=== PATIENT | male | born 1995 | race Asian ===

== ENCOUNTER 2017-06-12 18:13 | Emergency (ER) | payer OTHER ==
[2017-06-12] MEDS ORDERED: IBUPROFEN 200 MG TAB PO ONE (18:38)
--- NOTE | 2017-06-12 18:51 | EDPHY ---
H & P Stated Complaint: flu-like sxs since Monday Time Seen by Provider: 06/12/17 18:30 HPI/ROS: CHIEF COMPLAINT: "I think I have the flu " HISTORY OF PRESENT ILLNESS: 22-year-old male, newly diagnosed HIV positive, not currently on antiviral medication, complaining of 4 days of flu-like symptoms, fever, chills, sore throat, myalgias. No cough. No dyspnea. No diarrhea. No abdominal pain. No nuchal rigidity. No otalgia. No rash. No back pain. No muscular flaccidity or paralysis. PRIMARY CARE PROVIDER: [facility] REVIEW OF SYSTEMS: A ten point review of systems was performed and is negative with the exception of the items mentioned in the HPI PAST MEDICAL & SURGICAL HISTORY: Newly diagnosed HIV positive, not currently on antiviral therapy. SOCIAL HISTORY: Nonsmoker PHYSICAL EXAM (Prior to examination, patient consented to physical exam, hands were washed and my usual and customary physical exam procedures followed) 1) GENERAL: Well-developed, well-nourished, alert and oriented. Appears to be in no acute distress. 2) HEAD: Normocephalic, atraumatic 3) HEENT: Pupils equal, round, reactive to light bilaterally. Sclera anicteric. Nasopharynx, oropharynx, clear, no lesions. No tonsillar enlargement or exudate. Ears bilaterally with normal tympanic membranes. 4) NECK: Full range of motion, no meningeal signs. 5) LUNGS: Clear auscultation bilaterally, no wheezes, no rhonchi, no retractions. 6) HEART: Regular rate and rhythm, no murmur, no heave, no gallop. 7) ABDOMEN: No guarding, no rebound, no focal tenderness, negative McBurney's, negative Burton's, negative Rovsing's, negative peritoneal sign, 8) MUSCULOSKELETAL: Moving all extremities, no focal areas of tenderness, no obvious trauma. No peripheral edema or discoloration. 9) BACK: No CVA tenderness, no midline vertebral tenderness, no fluctuance, no step-off, no obvious trauma, no visual or palpable abnormality. 10) SKIN: No rash, no petechiae. 11) Psychiatric: Patient is oriented X 3, there is no agitation. 12) NEURO: Awake, alert, and oriented to person, place and time. Answers questions appropriately. There were no obvious focal neurologic abnormalities. No cerebellar dysfunction. Normal steady gait. Upper and lower extremities bilaterally with strength 5 / 5, reflexes 2+. DIFFERENTIAL DIAGNOSIS: In no particular include but limited to meningitis, sepsis, pneumonia, influenza, viral syndrome - Personal History Current Tetanus Diphtheria and Acellular Pertussis (TDAP): Yes - Medical/Surgical History Hx HIV/AIDS: Yes Other PMH: recent dx HIV, has not started tx yet - Social History Smoking Status: Never smoked Constitutional: Initial Vital Signs Temperature (C) 38.9 C H 06/12/17 18:24 Heart Rate 124 H 06/12/17 18:24 Respiratory Rate 16 06/12/17 18:24 Blood Pressure 127/63 H 06/12/17 18:24 O2 Sat (%) 97 06/12/17 18:24 O2 Delivery Mode Room Air Allergies/Adverse Reactions: No Known Allergies Allergy (Unverified 06/12/17 18:24) Home Medications: Medication Instructions Recorded NK [No Known Home Meds] 06/12/17 Medical Decision Making ED Course/Re-evaluation: The patient was re-evaluated with serial examinations most recently at 7:45 p.m. which point he is feeling significant improvement. He consumed 1000 mg of Tylenol prior to hospital arrival, was given further 800 mg of ibuprofen in the emergency department, re-evaluated at this time, he has defervesced to 37.7, states it is feeling significant improvement. Lungs remain clear, maintain normal saturations. He is noted negative influenza testing. I further inquired about respiratory issues such as coughing which he denies. He denies urinary or gastrointestinal abnormality. He denies rash . Is no meningeal signs. The case was discussed with primary supervising physician Dr. Torres in the ER. At this time no further intervention for the emergency department. Recommend continued Tylenol and Motrin. Today is Monday. He has an appointment with Dr. Cande Thomason on . Recommend he keep that appointment. In the meantime should he develop new or worsening symptoms, definitely if he develops shortness of breath or cough to return to the ER for re-evaluation. He feels comfortable with this plan. Usual and customary discharge precautions and instructions provided. All questions and concerns addressed by myself. - Data Points Laboratory Results: 06/12/17 18:25 Nasal Influenza A PCR NEGATIVE FOR FLU A (NEGATIVE) Nasal Influenza B PCR NEGATIVE FOR FLU B (NEGATIVE) Medications Given: Discontinued Medications Ibuprofen (Motrin) 800 mg PO EDNOW ONE Stop: 06/12/17 18:39 Last Admin: 06/12/17 19:22 Dose: 800 mg Departure - Departure Disposition: Home, Routine, Self-Care Clinical Impression: Flu-like symptoms Condition: Good Instructions: Influenza (ED) Additional Instructions: Return to the emergency department immediately if you develop shortness of breath, abdominal pain, neck stiffness, or any other symptoms that concern you Adult Pain & Fever Control: We recommend Acetaminophen (Tylenol) and Ibuprofen (Motrin,Advil) for pain and fever control. When fever is high or pain severe, both drugs can be used at the same time, but at different intervals. Please note the time differences. Your dose is: Acetaminophen 1000mg every 6 hours Ibuprofen 800mg every 6 hours with food OR Note: do not take Acetaminophen with Hydrocodone (Vicodin, Lortab) or Oycodone (Percocet). These medications also contain Acetaminophen. No more than 3000mg of Acetaminophen should be taken in 24 hours (for an adult). Referrals: Cande Thomason MD [Medical Doctor] - 06/15/17 (Keep your appointment with Dr. Cande Thomason this )
[2017-06-12 19:37] VITALS: BP 129/59; PULSE 101; TEMP 99.9; O2SAT 98
[2017-06-12 19:44] VITALS: RESP 20
== END 2017-06-12 20:06 | disposition home or self-care (01) ==
DX: R50.9 Fever, unspecified (principal)